=== PATIENT | female | born 1960 | race Caucasian/White ===

== ENCOUNTER → 2021-03-14 10:24 | Outpatient (BNVA) | payer OTHER, SELFPAY | PROVIDERS: Family Provider Family Medicine; PCP Family Medicine; Referring Provider Registered Nurse; Visit Provider Anesthesiology | DX: G89.29 Other chronic pain (principal); M54.42 Lumbago with sciatica, left side; M54.9 Dorsalgia, unspecified; Z79.891 Long term (current) use of opiate analgesic; Z87.891 Personal history of nicotine dependence | CPT/HCPCS: 99204 ==

== ENCOUNTER 2021-03-14 13:59 | Outpatient (CLI) | payer OTHER, SELFPAY | END 2021-03-14 14:00 | disposition home or self-care (01) | LOC: WOUND 14:03 | PROVIDERS: Family Provider Family Medicine; PCP Family Medicine; Visit Provider Thoracic Surgery (Cardiothoracic Vascular Surgery) | DX: L97.812 Non-pressure chronic ulcer of other part of right lower leg with fat layer exposed (principal); L97.822 Non-pressure chronic ulcer of other part of left lower leg with fat layer exposed | CPT/HCPCS: 88305; 97597; 97598; G0463 ==

== ENCOUNTER 2021-03-21 09:29 | Outpatient (CLI) | payer OTHER, SELFPAY | END 2021-03-21 09:30 | disposition home or self-care (01) | LOC: WOUND 09:29 | PROVIDERS: Family Provider Family Medicine; PCP Family Medicine; Visit Provider Thoracic Surgery (Cardiothoracic Vascular Surgery) | DX: L97.812 Non-pressure chronic ulcer of other part of right lower leg with fat layer exposed (principal); L97.822 Non-pressure chronic ulcer of other part of left lower leg with fat layer exposed | CPT/HCPCS: 11042; 11045 ==

== ENCOUNTER 2021-03-21 11:01 | Outpatient (CLI) | payer OTHER, SELFPAY ==
--- NOTE | 2021-03-21 11:08 | USCV_ITS ---
Leticia Rodriguez Age: 60 Gender: F : 1960 Exam Date: 03/21/2021 11:27 Ordering Phys: Marino Fisher MD (Andy) ([email or web address] [email or web address] Technologist: Lissy Fountain Exam Location: [facility] [place] HISTORY: Lower extremity swelling. Lower extremity pain. PROCEDURES: Venous duplex imaging was performed in only the left lower extremity. The following venous structures were evaluated: common femoral vein, profunda vein, proximal portion of the greater saphenous vein, superficial femoral vein, and the popliteal vein. In addition, the posterior tibial and peroneal trunk were evaluated. FINDINGS: Normal 2-D Doppler and augmentation and compressibility throughout the lower extremity venous structures. Additional imaging through the proximal calf veins also reveals no thrombus. Limited evaluation of the greater saphenous vein is patent with no thrombus. CONCLUSIONS No DVT left lower extremity. Dr. Kristal Ricks DO (Electronically Signed) Final Date: 21 March 2021 12:22 S
== END 2021-03-21 11:02 | disposition home or self-care (01) ==
LOC: RAD 11:04
PROVIDERS: PCP Family Medicine; Visit Provider Thoracic Surgery (Cardiothoracic Vascular Surgery)
DX: M79.604 Pain in right leg (principal); M79.89 Other specified soft tissue disorders; L53.9 Erythematous condition, unspecified
CPT/HCPCS: 93971

== ENCOUNTER → 2021-04-05 09:52 | Outpatient (BNVA) | payer OTHER, SELFPAY | PROVIDERS: PCP Family Medicine; Visit Provider Anesthesiology | DX: M54.42 Lumbago with sciatica, left side (principal); F17.210 Nicotine dependence, cigarettes, uncomplicated; Z79.891 Long term (current) use of opiate analgesic | CPT/HCPCS: 99213 ==

== ENCOUNTER 2021-04-09 08:59 | Outpatient (CLI) | payer OTHER, SELFPAY | END 2021-04-09 09:00 | disposition home or self-care (01) | LOC: WOUND 09:00 | PROVIDERS: PCP Family Medicine; Visit Provider Thoracic Surgery (Cardiothoracic Vascular Surgery) | DX: C44.712 Basal cell carcinoma of skin of right lower limb, including hip (principal); S81.812A Laceration without foreign body, left lower leg, initial encounter; W10.9XXA Fall (on) (from) unspecified stairs and steps, initial encounter | CPT/HCPCS: 11042 ==

== ENCOUNTER 2021-04-23 12:57 | Outpatient (CLI) | payer OTHER, SELFPAY | END 2021-04-23 12:58 | disposition home or self-care (01) | LOC: WOUND 12:58 | PROVIDERS: PCP Family Medicine; Visit Provider Nurse Practitioner Family | DX: L97.822 Non-pressure chronic ulcer of other part of left lower leg with fat layer exposed (principal) | CPT/HCPCS: 11042 ==

== ENCOUNTER → 2021-06-27 08:42 | Outpatient (BNVA) | payer OTHER, SELFPAY | PROVIDERS: PCP Family Medicine; Visit Provider Anesthesiology | DX: M54.42 Lumbago with sciatica, left side (principal); Z87.891 Personal history of nicotine dependence; Z79.891 Long term (current) use of opiate analgesic | CPT/HCPCS: 99213 ==

== ENCOUNTER → 2021-08-15 09:04 | Outpatient (BNVA) | payer OTHER, SELFPAY | PROVIDERS: PCP Family Medicine; Visit Provider Anesthesiology | DX: G89.29 Other chronic pain (principal); M54.42 Lumbago with sciatica, left side; Z79.891 Long term (current) use of opiate analgesic | CPT/HCPCS: 99213 ==

== ENCOUNTER → 2023-05-19 11:14 | Outpatient (BNVA) | payer OTHER, MEDICAID, SELFPAY | PROVIDERS: PCP Nurse Practitioner Family; Visit Provider Nurse Practitioner Family | DX: J44.9 Chronic obstructive pulmonary disease, unspecified (principal); H57.9 Unspecified disorder of eye and adnexa; E78.5 Hyperlipidemia, unspecified; I10 Essential (primary) hypertension; I50.9 Heart failure, unspecified; M25.511 Pain in right shoulder | CPT/HCPCS: 80053; 80061; 85025 ==

== ENCOUNTER → 2023-06-10 10:19 | Outpatient (BNVA) | payer OTHER, MEDICAID, SELFPAY | PROVIDERS: PCP Nurse Practitioner Family; Visit Provider Nurse Practitioner Family | DX: R53.83 Other fatigue (principal) | CPT/HCPCS: 85025 ==

== ENCOUNTER 2023-06-18 12:54 | Outpatient (CLI) | payer OTHER, SELFPAY ==
--- NOTE | 2023-06-18 13:02 | XR_ITS ---
WS: [id number] XR shoulder RT min 2V* [id number] REASON FOR EXAM: M25.511 - Pain in right shoulder FINDINGS: No fracture or focal bone lesion. Acromioclavicular joint is intact without significant arthropathic change. The glenohumeral joint space is not optimally demonstrated however there does appear to be mild to mo derate narrowing with mild subchondral sclerosis of the glenoid. No soft tissue abnormality. IMPRESSION: Mild to moderate osteoarthritis in the glenohumeral joint.
== END 2023-06-18 12:55 | disposition home or self-care (01) ==
PROVIDERS: PCP Nurse Practitioner Family; Visit Provider Nurse Practitioner Family
DX: M25.511 Pain in right shoulder (principal); M19.011 Primary osteoarthritis, right shoulder; R00.0 Tachycardia, unspecified; I25.10 Atherosclerotic heart disease of native coronary artery without angina pectoris; I50.9 Heart failure, unspecified; J44.9 Chronic obstructive pulmonary disease, unspecified
CPT/HCPCS: 36415; 73030; 80048; 83880; 93005

== ENCOUNTER → 2023-07-28 14:48 | Outpatient (BNVA) | payer OTHER, SELFPAY | PROVIDERS: PCP Nurse Practitioner Family; Referring Provider Nurse Practitioner Family; Visit Provider Specialist | DX: M25.511 Pain in right shoulder (principal) | CPT/HCPCS: 73030 ==

== ENCOUNTER → 2023-08-04 11:44 | Outpatient (BNVA) | payer MEDICARE, OTHER, SELFPAY | PROVIDERS: PCP Nurse Practitioner Family; Visit Provider Nurse Practitioner Family | DX: F41.9 Anxiety disorder, unspecified (principal); J44.0 Chronic obstructive pulmonary disease with (acute) lower respiratory infection; I50.9 Heart failure, unspecified; R51.9 Headache, unspecified; M54.50 Low back pain, unspecified; G89.29 Other chronic pain; M54.42 Lumbago with sciatica, left side; I25.10 Atherosclerotic heart disease of native coronary artery without angina pectoris | CPT/HCPCS: 80053; 83880; 85025 ==

== ENCOUNTER → 2023-08-07 10:03 | Outpatient (BNVA) | payer MEDICARE, OTHER, SELFPAY | PROVIDERS: PCP Nurse Practitioner Family; Visit Provider Nurse Practitioner Family | DX: E87.6 Hypokalemia (principal); Z23 Encounter for immunization | CPT/HCPCS: 80053 ==

== ENCOUNTER 2023-08-13 12:52 | Outpatient (CLI) | payer MEDICARE, OTHER, SELFPAY ==
[2023-08-13 13:36] LABS: Alanine Aminotransferase 16 U/L (0-33); Albumin Level 4.1 g/dL (3.5-5.2); Alkaline Phosphatase 73 U/L (35-105); Anion Gap 11.6 (5-19); Aspartate Amino Transferase 23 U/L (0-32); Blood Urea Nitrogen 7 mg/dL (8-23); Calcium 9.2 mg/dL (8.5-10.5); Carbon Dioxide 39 mmol/L (22-29); Chloride 94 mmol/L (98-107); Globulin 3.1 g/dL (1.3-4.6); Glucose 121 mg/dL (65-115); Osmolality Calculated 293 mOsm/kg (285-295); Sodium 142 mmol/L (136-145); Total Bilirubin 0.4 mg/dL (0.15-1.2); Total Protein 7.2 g/dL (6.6-8.7)
[2023-08-13 13:41] LABS: Potassium 2.6 mmol/L (3.5-5.1)
== END 2023-08-13 12:53 | disposition home or self-care (01) ==
PROVIDERS: PCP Nurse Practitioner Family; Visit Provider Nurse Practitioner Family
DX: E87.6 Hypokalemia (principal)
CPT/HCPCS: 36415; 80053

== ENCOUNTER 2023-08-13 13:57 | Emergency (ER) | payer MEDICARE, OTHER, SELFPAY ==
--- NOTE | 2023-08-13 14:10 | ECG_ITS ---
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 Measurements Intervals [place] Rate: 90 P: 80 SD: 139 QRS: 66 QRSD: 92 T: 24 QT: 312 QTc: 384 Interpretive Statements SINUS RHYTHM NONSPECIFIC ST & T-WAVE ABNORMALITY No previous ECG available for comparison Electronically Signed On 08-13-2023 15:12:19 DIRECTOR OF CRITICAL CARE by Carlo Langston M.D. [id number]
[2023-08-13 14:13] VITALS: BP 163/79; PULSE 98; RESP 16; TEMP 36.6; O2SAT 94; BMI 40.3
[2023-08-13] MEDS: promethazine 25 mg/mL SDV 1 mL IM (14:35)
--- NOTE | 2023-08-13 14:37 | W.ED.RECABL ---
HPI - Recheck/Abnormal Lab/Rx General: Chief Complaint: Recheck/Abnormal Lab/Rx Stated Complaint: abnormal labs,low potassium Time Seen by Provider: 08/13/23 14:01 Source: patient Mode of arrival: wheelchair Limitations: no limitations History of Present Illness: Patient is a 63-year-old female with past medical history of COPD, CHF, CAD, and hypokalemia who presents to the emergency department from doctor's office due to abnormal lab today. Patient was sent for a potassium of 2.6 obtained today. She states she has a history of low potassium, and has been hospitalized once prior for this reason. She reports that she feels more fatigued than normal, but otherwise has no changes from baseline. She is chronically on 6-7 L of oxygen for her COPD. She denies any acute changes in her medications and denies any new swelling in her abdomen or extremities. She denies any chest pain or palpitations, and states that her breathing feels at baseline. MD complaint: abnormal lab (Hypokalemia) Review of Systems Const: Reports: fatigue and other (Abnormal lab-hypokalemia); Denies: fever(s) or chills Card: Denies: chest pain, palpitations, irregular heart rhythm, edema or dyspnea on exertion Resp: Denies: dyspnea or productive cough GI: Denies: abdominal pain, nausea, vomiting, diarrhea or constipation : Denies: dysuria, urinary frequency, urinary urgency or urinary hesitancy Musc: Denies: neck pain or back pain Skin/Breast: Denies: rash Neuro: Denies: headache(s) PFSH ED PFSH: Medical History Aching headache Acute bilateral low back pain Acute hip pain Anxiety Arthritis Asthma BiPAP (biphasic positive airway pressure) dependence CHF (congestive heart failure) Chronic joint pain Chronic low back pain Cluster headaches COPD (chronic obstructive pulmonary disease) COPD (chronic obstructive pulmonary disease) Delivery with history of Encounter for long-term opiate analgesic use Encounter for narcotic contract discussion Hypertension Hypoxia Insomnia Lentigo simplex Lumbago with sciatica, left side Opioid use Other chronic pain Pain in left hip Pain management contract signed Sciatica Sleep apnea Smoker Surgical History History of appendectomy Hx of appendectomy Hx of breast biopsy Hx of section Hx of cholecystectomy Hx of cholecystectomy Hx of heart artery stent Hx of shoulder surgery Social History Smoking and tobacco/nicotine status: current every day tobacco/nicotine user cigarettes Alcohol intake: former Substance/Drug Use: current Caregiver/support person: Yes Lives independently: Yes Physical Exam Const: COMMON NORMALS: no acute distress GENERAL APPEARANCE: cooperative and comfortable NUTRITIONAL APPEARANCE: obese ORIENTATION/CONSCIOUSNESS: Yes awake, Yes oriented to person, Yes oriented to place and Yes oriented to time HENMT: COMMON NORMALS: normocephalic, atraumatic and hearing grossly normal bilaterally HEAD & SCALP: normocephalic and atraumatic Resp: COMMON NORMALS: normal respiratory effort, No retractions and No use of accessory muscles EFFORT & INSPECTION: Yes Actively coughing AUSCULTATION: wheezes throughout Cardio: COMMON NORMALS: regular rate, regular rhythm, No murmurs present (Cardio) and Peripheral pulses 2+ throughout RATE: regular rate RHYTHM: regular rhythm PERIPHERAL PULSES: Peripheral pulses 2+ throughout GI: COMMON NORMALS: Soft to palpation and No hepatosplenomegaly present AUSCULTATION: Yes normoactive bowel sounds PALPATION: Yes Soft to palpation, No Tenderness to palpation present (GI), No Guarding due to palpation present (GI) and Yes No hepatosplenomegaly present Extremity: COMMON NORMALS: normal to inspection, capillary refill normal, no clubbing, cyanosis or edema and no calf tenderness GENERAL: Yes edema (3+ bilateral) Neuro: SENSORIUM/ORIENTATION: Yes oriented to person, Yes oriented to place and Yes oriented to time Skin: COMMON NORMALS: no rashes or lesions noted GENERAL SKIN EXAM: no rashes or lesions noted Course Vital Signs: Vital signs: Vital Signs Temperature 97.9 F 08/13/23 14:13 Pulse Rate 84 08/13/23 15:40 Respiratory Rate 16 08/13/23 14:13 Blood Pressure 149/73 08/13/23 15:40 Pulse Oximetry 100 08/13/23 15:40 Oxygen Delivery Me thod Room Air 08/13/23 15:40 Oxygen Flow Rate 5 08/13/23 14:13 MDM - Recheck/Abnormal Lab/Rx Medical Decision Making Hypokalemia. Resolved after giving oral supplement. Patient has been regularly taking the oral tablets. She has been taking them regularly but evidently not absorbing them because she has been chronically hypokalemic recently. She does seem to absorb the liquid well. Recommend that she change from the pills to the liquid formulation 20 mEq 3 times daily follow-up with her primary care doctor within a week to recheck potassium. Advised patient she may need to have prior authorization done by her primary care provider. Given the laboratory proven persistent hypokalemia while on the tablet formation and today's significant improvement with the oral formulation I think it does justify switching her to the oral liquid. Medical Records I reviewed the patient's medical records. Lab Data I reviewed the patient's lab results. 08/13/23 15:48 Laboratory Results Potassium 3.3 mmol/L (3.5-5.1) L 08/13/23 15:48 No radiology studies performed this visit Discharge Plan Discharge Patient Disposition: Home Clinical Impression: Hypokalemia Condition: Stable Prescriptions: New potassium chloride 20 mEq/15 mL liquid 20 meq PO TID Qty: 1500 0RF Discontinued potassium chloride [Klor-Con M20] 20 mEq tablet,ER particles/crystals 20 meq PO TID No Action calcium carbonate-vitamin D3 [Calcium 600 with Vitamin D3] 600 mg(1,500mg) -500 unit capsule 1 cap PO DAILY furosemide [Lasix] 20 mg tablet 20 mg PO DAILY mupirocin 2 % ointment 1 applic topical DAILY Qty: 22 1RF Rx Instructions: Apply to affected area until healed majuania gummies 1 ea PO PRN cyclobenzaprine 10 mg tablet 10 mg PO TID PRN (Reason: Spasms) clopidogrel [Plavix] 75 mg tablet 75 mg PO DAILY albuterol sulfate [ProAir HFA] 90 mcg/actuation HFA aerosol inhaler 1 inh inhalation QID PRN (Reason: Shortness Of Breath) isosorbide mononitrate 60 mg tablet extended release 24 hr 60 mg PO DAILY spironolactone 25 mg tablet 25 mg PO QAM metoprolol tartrate 25 mg tablet 12.5 mg PO BID fluticasone propion-salmeterol [Advair Diskus] 500-50 mcg/dose blister with device 1 inh inhalation BID (DME) oxygen-air delivery systems Device See Rx Instructions .Route Rx Instructions: 7 L at home during the day 9 L at night in bipap machine (DME) CPAP Device See Rx Instructions .Route Rx Instructions: bipap @ 12 cm ipap and 8cm epap with heated humidifier and heated tubing length of need 99 nitroglycerin [Nitrostat] 0.4 mg tablet, sublingual 0.4 mg sublingual Q5M PRN (Reason: Chest Pain) Rx Instructions: do not exceed 3 doses per episode acetaminophen [Tylenol Extra Strength] 500 mg tablet 500 mg PO Q6H PRN (Reason: Pain) multivitamin [Daily Multi-Vitamin] Tablet 1 tab PO DAILY nystatin 100,000 unit/gram powder 1 applic topical DAILY Qty: 15 1RF promethazine-DM 6.25-15 mg/5 mL syrup 5 ml PO Q6H PRN (Reason: Cough) ipratropium-albuterol 0.5 mg-3 mg(2.5 mg base)/3 mL solution for nebulization 3 ml inhalation 6XD PRN (Reason: Shortness Of Breath) Lunesta 3 mg tablet 3 mg PO BEDTIME Discharge Orders: Discharge ED (Routine); Ordered 08/13/23 Ordered By: Tono Garg Referrals: Fadia Li FNP [Primary Care Provider] - Discharge Diet: Usual diet Discharge Activity: Resume usual activity Patient Instructions: Opioid Safety, Pain Management Activity Restrictions/Additional Instructions: Thank you for choosing [facility] for your healthcare needs today. Please realize this is an emergency room and that we are providing you with a medical screening exam and this may not be complete and all inclusive of all the testing and or work up that you may need to determine your ailment or severity of your illness. It is very important that you follow up as instructed or that you return to the Emergency Department should you have concerns or if your condition changes or worsens in any way. You were seen today for low potassium. Your potassium improved with the supplementation given in the emergency room. You were previously taking oral tablets as they do not seem to be absorbing well you are given a prescription for the potassium liquid. You should take 20 mill equivalents (15 mL) 3 times daily. You can mix this into another liquid to help counter the taste of the medication. Follow-up with your primary care provider within the next 7 to 10 days to recheck your potassium. Coding Level of Care Code ED Moving Picture Operator for Bryanna Devi
[2023-08-13 14:44] VITALS: BP 144/76; PULSE 92; O2SAT 98
[2023-08-13] MEDS: potassium chloride oral liq 20 mEq/15 mL UDC 60 MEQ PO (14:59)
[2023-08-13 15:40] VITALS: BP 149/73; PULSE 84; O2SAT 100
[2023-08-13 16:09] LABS: Potassium 3.3 mmol/L (3.5-5.1)
[2023-08-13 16:52] VITALS: BP 126/75; PULSE 71; O2SAT 95
== END 2023-08-13 16:54 | disposition home or self-care (01) ==
PROVIDERS: Emergency Provider Family Medicine; PCP Nurse Practitioner Family
DX: E87.6 Hypokalemia (principal); Z79.02 Long term (current) use of antithrombotics/antiplatelets; F17.210 Nicotine dependence, cigarettes, uncomplicated; I11.0 Hypertensive heart disease with heart failure; I50.9 Heart failure, unspecified; J44.9 Chronic obstructive pulmonary disease, unspecified
CPT/HCPCS: 36415; 84132; 93005; 96372; 99284; J2550

== ENCOUNTER 2023-09-01 08:40 | Outpatient (CLI) | payer OTHER, MEDICARE, SELFPAY ==
--- NOTE | 2023-09-01 09:30 | MR_ITS ---
WS: [id number] MRI RIGHT SHOULDER NONCONTRAST TECHNIQUE: Sagittal T2, coronal T1, T2 and proton density imaging. Axial gradient PDE imaging. CLINICAL INFORMATION: right shoulder pain COMPARISON: None. FINDINGS: Prior postoperative changes RIGHT AC joint. Degenerative arthritis at the AC joint with mild downslop ing acromion. Mild narrowing subacromial space. Small amount of subacromial subdeltoid fluid. Tiny kenny int effusion. Tendinopathy distal supraspinatus. Small undersurface tear distal infraspinatus. No ten don retraction. Chronic thinning of the supraspinatus and infraspinatus. Normal teres minor. Normal subscapularis. Biceps tendon is intact within the bicipital groove. Modera te degenerative arthritis glenohumeral articulation with mild degenerative fraying of the glenoid lab rum. Visually small shoulder capsule with thickening of the axillary recess. Recommend correlation for adh esive capsulitis. IMPRESSION: 1. Tendinopathy distal supraspinatus. Tiny undersurface tear distal infraspinatus. 2. Biceps tendon is intact within the bicipital groove. 3. Moderate degenerative narrowing of the glenohumeral articulation. 4. Visually small shoulder capsule. Recommend correlation for adhesive capsulitis.
== END 2023-09-01 08:41 | disposition home or self-care (01) ==
PROVIDERS: PCP Nurse Practitioner Family; Visit Provider Specialist
DX: M25.511 Pain in right shoulder (principal); M67.813 Other specified disorders of tendon, right shoulder
CPT/HCPCS: 73221

== ENCOUNTER → 2023-09-02 12:23 | Outpatient (BNVA) | payer MEDICARE, OTHER, SELFPAY | PROVIDERS: PCP Nurse Practitioner Family; Visit Provider Nurse Practitioner Family | DX: I25.10 Atherosclerotic heart disease of native coronary artery without angina pectoris (principal); I11.0 Hypertensive heart disease with heart failure; I50.9 Heart failure, unspecified; F17.210 Nicotine dependence, cigarettes, uncomplicated | CPT/HCPCS: 99213 ==

== ENCOUNTER → 2023-09-04 08:15 | Outpatient (BNVA) | payer MEDICARE, OTHER, SELFPAY | PROVIDERS: PCP Nurse Practitioner Family; Visit Provider Internal Medicine Pulmonary Disease | DX: F17.210 Nicotine dependence, cigarettes, uncomplicated (principal); J44.0 Chronic obstructive pulmonary disease with (acute) lower respiratory infection; Z12.2 Encounter for screening for malignant neoplasm of respiratory organs; Z71.6 Tobacco abuse counseling; I50.9 Heart failure, unspecified; Z99.81 Dependence on supplemental oxygen | CPT/HCPCS: 99204 ==

== ENCOUNTER → 2023-09-10 10:38 | Outpatient (BNVA) | payer MEDICARE, OTHER, SELFPAY | PROVIDERS: PCP Nurse Practitioner Family; Visit Provider Psychiatry & Neurology Neurology | DX: G44.009 Cluster headache syndrome, unspecified, not intractable (principal) | CPT/HCPCS: 99203 ==

== ENCOUNTER 2023-09-17 10:10 | Outpatient (CLI) | payer MEDICARE, OTHER, SELFPAY ==
--- NOTE | 2023-09-17 11:00 | CT_ITS ---
WS: [id number] LDCT LUNG CANCER SCREENING TECHNIQUE: Noncontrast CT of the chest with coronal and sagittal reformatted images. CLINICAL INFORMATION: Cancer Screen COMPARISON: None. DLP: 119.60 mGy.cm DIvol: Mean CTDIvol: 3.00 (mGy) All CT scans at [facility] use at least one of these dose optimization techniques: automat ed exposure control; mA and/or kV adjustment per patient size (includes targeted exams where dose is matched to clinical indication); or iterative reconstruction. FINDINGS: No suspicious pulmonary parenchymal abnormalities. Normal caliber thoracic aorta. Aortic ca lcification. Coronary calcification. Adrenal glands are normal. Tiny esophageal hernia. Mild thoracic curve. Mild thoracic kyphosis. Hypertrophic changes thoracic spine. IMPRESSION: CT/CT lung screening [id number] LUNG-RADS: 1-Negative FOLLOW UP: 12 Month: Continue annual screening with LDCT
== END 2023-09-17 10:11 | disposition home or self-care (01) ==
PROVIDERS: PCP Nurse Practitioner Family; Visit Provider Internal Medicine Pulmonary Disease
DX: Z12.2 Encounter for screening for malignant neoplasm of respiratory organs (principal); F17.210 Nicotine dependence, cigarettes, uncomplicated; M75.01 Adhesive capsulitis of right shoulder; M25.511 Pain in right shoulder; G89.29 Other chronic pain
CPT/HCPCS: 20610; 71271; 99213; J1100; J2795; J3301

== ENCOUNTER → 2023-10-24 10:33 | Outpatient (BNVA) | payer MEDICARE, OTHER, SELFPAY | PROVIDERS: PCP Nurse Practitioner Family; Visit Provider Nurse Practitioner Family | DX: I50.9 Heart failure, unspecified (principal); E87.6 Hypokalemia; I10 Essential (primary) hypertension | CPT/HCPCS: 80053; 80061; 83880; 85025 ==

== ENCOUNTER → 2023-11-06 13:06 | Outpatient (BNVA) | payer MEDICARE, OTHER, SELFPAY | PROVIDERS: PCP Nurse Practitioner Family; Visit Provider Internal Medicine Pulmonary Disease | DX: J44.0 Chronic obstructive pulmonary disease with (acute) lower respiratory infection (principal); Z12.2 Encounter for screening for malignant neoplasm of respiratory organs; Z71.6 Tobacco abuse counseling; J96.11 Chronic respiratory failure with hypoxia | CPT/HCPCS: 99214 ==

== ENCOUNTER 2023-12-19 09:42 | Outpatient (CLI) | payer MEDICARE, OTHER, SELFPAY ==
[2023-12-19 12:52] LABS: Alanine Aminotransferase 10 U/L (0-33); Albumin Level 4.1 g/dL (3.5-5.2); Alkaline Phosphatase 91 U/L (35-105); Anion Gap 15.9 (5-19); Aspartate Amino Transferase 17 U/L (0-32); Blood Urea Nitrogen 4 mg/dL (8-23); Calcium 9.2 mg/dL (8.5-10.5); Carbon Dioxide 34 mmol/L (22-29); Chloride 94 mmol/L (98-107); Globulin 3.4 g/dL (1.3-4.6); Glucose 95 mg/dL (65-115); NT Pro B Type Natriuretic Pept 531 pg/mL (0-125); Osmolality Calculated 289 mOsm/kg (285-295); Sodium 141 mmol/L (136-145); Total Bilirubin 0.7 mg/dL (0.15-1.2); Total Protein 7.5 g/dL (6.6-8.7)
[2023-12-19 12:58] LABS: Potassium 2.9 mmol/L (3.5-5.1)
== END 2023-12-19 09:43 | disposition home or self-care (01) ==
LOC: LAB 09:43
PROVIDERS: PCP Nurse Practitioner Family; Visit Provider Nurse Practitioner Family
DX: I50.9 Heart failure, unspecified (principal); E87.6 Hypokalemia
CPT/HCPCS: 36415; 80053; 83880; 99213

== ENCOUNTER 2023-12-24 09:36 | Outpatient (CLI) | payer OTHER, MEDICARE, SELFPAY ==
[2023-12-24 10:15] VITALS: PULSE 89; RESP 18; O2SAT 91
[2023-12-24] MEDS: albuterol 2.5 mg/3 mL Neb INHALATION (10:15)
[2023-12-24 10:19] VITALS: PULSE 82
== END 2023-12-24 09:37 | disposition home or self-care (01) ==
PROVIDERS: PCP Nurse Practitioner Family; Visit Provider Internal Medicine Pulmonary Disease
DX: R06.02 Shortness of breath (principal)
CPT/HCPCS: 94060; 94618; 94726; 94729; J7613

== ENCOUNTER 2023-12-24 10:40 | Outpatient (CLI) | payer OTHER, MEDICARE, SELFPAY ==
--- NOTE | 2023-12-24 10:47 | XR_ITS ---
WS: [id number] Exam: XR knee LT 3V* [id number] Date/Time of Exam: 12/24/2023 10:47 AM Reason For Exam: M25.562 - Pain in left knee No acute fracture or dislocation. The joint compartments are relatively well-maintained. No joint eff usion identified. Normal soft tissues. IMPRESSION: 1. Negative LEFT knee.
== END 2023-12-24 10:41 | disposition home or self-care (01) ==
LOC: RAD 10:45
PROVIDERS: PCP Nurse Practitioner Family; Visit Provider Nurse Practitioner Family
DX: M25.562 Pain in left knee (principal)
CPT/HCPCS: 73562

== ENCOUNTER → 2023-12-30 09:35 | Outpatient (BNVA) | payer MEDICARE, OTHER, SELFPAY | PROVIDERS: PCP Nurse Practitioner Family; Visit Provider Nurse Practitioner Family | DX: E87.6 Hypokalemia (principal) | CPT/HCPCS: 80053 ==

== ENCOUNTER 2024-01-21 10:30 | Outpatient (CLI) | payer MEDICARE, OTHER, SELFPAY ==
--- NOTE | 2024-01-21 11:00 | MR_ITS ---
WS: [id number] MRI LEFT KNEE NONCONTRAST TECHNIQUE: Axial PD, coronal PD fat sat, coronal PD, sagittal PD, and sagittal PD fat-sat images obta ined. CLINICAL INFORMATION: M25.562 - Pain in left knee COMPARISON: None. FINDINGS: Distal quadriceps and patella tendons are intact. Hypertrophic patella. Normal ACL and PCL. Small sup rapatellar effusion. Advanced chondromalacia patella. Medial and lateral patellar retinaculum appear intact. Small lobulated popliteal cyst. Measures 2.1 x 1.1 cm. Medial and lateral collateral ligaments appear intact. Small amount of fluid and edema deep to the MC L can be seen with grade 1 injury. Chronic thinning of the medial and lateral meniscus. Chronic intra substance signal abnormality involving the lateral meniscus. Blunting with chronic appearing tear inv olving the medial meniscus at the meniscal root. Advanced chronic thinning of the medial meniscus. Mo derate to advanced tricompartment arthritis worse in the medial joint compartment with grade IV chond romalacia. . IMPRESSION: 1. Moderate to advanced tricompartmental arthritis worse in the medial joint compartment with grade IV chondromalacia. 2. Chronic thinning of the medial meniscus with chronic appearing tear at the meniscal root with carlotta nting. 3. Fluid and edema deep to the medial collateral ligament compatible with grade 1 injury. 4. Advanced chondromalacia patella. 5. Small suprapatellar effusion. 6. Small popliteal cyst described above. 7. ACL and PCL appear intact. Outbridge grading: grade IV: full-thickness cartilage loss with underlying bone reactive changes
== END 2024-01-21 10:31 | disposition home or self-care (01) ==
LOC: RAD 10:31
PROVIDERS: PCP Nurse Practitioner Family; Visit Provider Nurse Practitioner Family
DX: M25.562 Pain in left knee (principal); M22.42 Chondromalacia patellae, left knee; M17.12 Unilateral primary osteoarthritis, left knee; M25.462 Effusion, left knee; M71.22 Synovial cyst of popliteal space [Baker], left knee
CPT/HCPCS: 73721

== ENCOUNTER → 2024-03-01 11:34 | Outpatient (BNVA) | payer MEDICARE, OTHER, SELFPAY | PROVIDERS: PCP Nurse Practitioner Family; Visit Provider Internal Medicine Cardiovascular Disease | DX: R07.9 Chest pain, unspecified (principal); R06.02 Shortness of breath; I50.9 Heart failure, unspecified; E78.5 Hyperlipidemia, unspecified; I25.10 Atherosclerotic heart disease of native coronary artery without angina pectoris; I10 Essential (primary) hypertension; I25.118 Atherosclerotic heart disease of native coronary artery with other forms of angina pectoris; J44.9 Chronic obstructive pulmonary disease, unspecified; E87.6 Hypokalemia; F17.210 Nicotine dependence, cigarettes, uncomplicated; R94.31 Abnormal electrocardiogram [ECG] [EKG] | CPT/HCPCS: 36415; 80048; 80061; 80076; 83880; 93005; 99215 ==

== ENCOUNTER → 2024-04-16 08:38 | Outpatient (BNVA) | payer MEDICARE, OTHER, SELFPAY | PROVIDERS: PCP Nurse Practitioner Family; Visit Provider Nurse Practitioner | DX: M17.12 Unilateral primary osteoarthritis, left knee; G89.29 Other chronic pain; Z71.89 Other specified counseling | CPT/HCPCS: 20610; 99214; J1100; J2795; J3301 ==

== ENCOUNTER → 2024-06-01 09:45 | Outpatient (BNVA) | payer MEDICARE, OTHER, SELFPAY | PROVIDERS: PCP Nurse Practitioner Family; Visit Provider Nurse Practitioner Family | DX: I25.10 Atherosclerotic heart disease of native coronary artery without angina pectoris (principal); I11.0 Hypertensive heart disease with heart failure; I50.9 Heart failure, unspecified; F17.210 Nicotine dependence, cigarettes, uncomplicated | CPT/HCPCS: 99214 ==

== ENCOUNTER → 2024-06-17 11:06 | Outpatient (BNVA) | payer MEDICARE, OTHER, SELFPAY | PROVIDERS: PCP Nurse Practitioner Family; Visit Provider Nurse Practitioner Family | DX: E87.6 Hypokalemia (principal); N39.0 Urinary tract infection, site not specified | CPT/HCPCS: 80053; 81000; 87086 ==

== ENCOUNTER 2024-06-22 07:23 | Outpatient (CLI) | payer MEDICARE, OTHER, SELFPAY ==
--- NOTE | 2024-06-22 | ECG_ITS ---
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 Interpretive Statements Dobutamine/sestamibi/sestamibi stress test PROCEDURE: At the baseline, the blood pressure was with a heart rate of. The electrocardiogram showed sinus bradycardia with a rate of [address] Ts.. The dobutamine was infused over a period of 9 minutes and 40 seconds. The maximum heart rate obtained was 167 (108% of the maximum predicted heart rate). The blood pressure at that time was 194/44 mmHg. The patient did not have any chest pain . The physical examination remained unchanged. The EKG revealed 1 to 1-1/[address] depressions in lead II, III, aVF, V5 and V6. Frequent PVCs in the form of isolated beats, couplets and triplets were noted with the peak infusion. During the recovery phase, the patient did not have any specific symptoms. The blood pressure at the end of the recovery phase was 178/96 with a heart rate of 102 per minute. CONCLUSION: 1. Abnormal EKG response to dobutamine infusion suggesting inferolateral wall ischemia. 2. No dobutamine due to chest pain. 3. Frequent PVCs in the form of isolated beats, couplets, triplets and short runs of nonsustained atrial tachycardia were noted during the peak infusion. 4. Sestamibi/Sestamibi perfusion scan pending; see separate report. Electronically Signed On 06-27-2024 21:26:18 CDT by Samuel Granados M.D. [id number]
[2024-06-22 08:07] VITALS: BMI 34.9
--- NOTE | 2024-06-22 08:08 | NMCV_ITS ---
NM molly perf SPECT r/s* [id number] Leticia Maynard Age: 64 Gender: F : 1960 Exam Date: 06/22/2024 08:08 Ordering Phys: Samuel Granados MD ([email or web address]) Technologist: DAVE May Exam Location: [facility] Indications: CP STRESS TEST [facility] IMAGE PROTOCOL Rest/Stress 1 Dobutamine Day Radiopharmaceutical Dose (mCi) Administration Site Administered by Rest: Tc-99m 11.0 IV DAVE Garza Sestamibi Stress:Tc-99m 32.1 IV DAVE Cifuentes Sestamibi Rest: 22-Jun-2024 60 Discovery 630 Stress: 22-Jun-2024 30 Discovery 630 Radiopharmaceutical was injected at 85 % maximum heart rate. Supine position only as patient was unable to lay prone. SPECT RESULTS Technical Quality: Good Raw Data Analysis: Adequate Image Corrections: No attenuation or motion correction applied Summed Stress Score: 0 Summed Rest Score: 0 Summed Difference Score: 0 PERFUSION FINDINGS Fairly uniform myocardial tracer uptake. No significant Perfusion normalities. FUNCTIONAL RESULTS (calculated via Gated SPECT) Stress Image LV EF (%): 60 Stress EDV (mL):97 TID: 1.31 Stress ESV (mL):39 FUNCTIONAL FINDINGS: Segmental wall motion analysis revealing no gross wall motion abnormalities IMPRESSIONS 1. Myocardial perfusion imaging revealing fairly uniform myocardial tracer uptake with no significant perfusion abnormalities. 2. Normal LV ejection fraction 60%. 3. LV wall motion analysis revealing no gross wall motion abnormalities. 4. Normal LV volume 5. Elevated transient ischemic dilatation ratio of 1.31 may suggest endocardial ischemia. However in the absence of any other abnormal objective findings, the reliability is questionable. Clinical correlation is recommended. Dr Samuel Granados MD FAC (Electronically Signed) Final Date: 22 June 2024 13:21 S
[2024-06-22] MEDS: DOBUTtamine 200 MG in sodium chloride 0.9% 34 ML 15.65 MG IV (09:55)
[2024-06-22] MEDS: atropine 0.1 mg/mL Syr 10 mL 0.5 MG IVP (10:04)
[2024-06-22] MEDS: metoprolol tartrate 1 mg/1 mL SDV 5 mL 5 MG IV (10:10)
[2024-06-22 10:26] VITALS: BP 176/73; PULSE 99
== END 2024-06-22 07:24 | disposition home or self-care (01) ==
PROVIDERS: PCP Nurse Practitioner Family; Visit Provider Internal Medicine Cardiovascular Disease
DX: Z98.61 Coronary angioplasty status (principal); R06.02 Shortness of breath; R94.39 Abnormal result of other cardiovascular function study
CPT/HCPCS: 36415; 78452; 93017; A9500; J0461; J1250; J3490; J7050

== ENCOUNTER 2024-07-02 13:05 | Outpatient (CLI) | payer MEDICARE, OTHER, SELFPAY ==
--- NOTE | 2024-07-02 13:08 | USCV_ITS ---
Leticia Maynard Age: 64 Gender: F : 1960 Exam Date: 07/02/2024 14:28 Ordering Phys: Samuel Granados MD ([email or web address]) Technologist: [place] [facility] [place]: cad BP: 125 / 70 HR: 69 Rhythm: Sinus Technical Quality: Adequate MEASUREMENTS (Male / Female) Normal Values 2D ECHO LVOT Diameter 1.9 cm LV Ejection Fraction MOD 4C 52.5 % LV Ejection Fraction MOD 2C 56.5 % LV Ejection Fraction 2C AL 57.3 % LA Diameter 4.0 cm RA Systolic Volume 4C AL 61.4 ml RA Systolic Volume 4C MOD 58.5 ml LA Sys Volume AL 52.9 cm cubed LA Sys Volume Index AL 23.2 cm cubed/m squared M-MODE LA Ao Ratio MM 1.4 AV Cusp Separation MM 2.2 cm DOPPLER AV Peak Velocity 108.0 cm/s LVOT Peak Velocity 77.0 cm/s AV Area Cont Eq vti 2.3 cm squared AV Area Cont Eq pk 2.0 cm squared MV Peak Velocity 265.3 cm/s MV Area PHT 4.0 cm squared Mitral E to A Ratio 1.1 TV Peak Velocity 138.0 cm/s TR Peak Velocity 143.0 cm/s TR Peak Gradient 8.2 mmHg TV Peak E Velocity 82.0 cm/s Right Atrial Pressure 3.0 mmHg Pulmonary Artery Systolic Pressu 11.2 mmHg PV Peak Velocity 91.0 cm/s FINDINGS Left Ventricle Normal left ventricular size and systolic function, EF 57%. No significant wall motion normalities. Echodensity in the LV apex most likely degenerated endocardial structure. Right Ventricle Normal right ventricular size and systolic function. Right Atrium The right atrium is normal in size. Left Atrium The left atrium is normal in size. Mitral Valve Trace mitral valve regurgitation. Aortic Valve Thickened aortic valve. Tricuspid Valve No gross abnormalities noted Pulmonic Valve No gross abnormalities noted Pericardium Normal pericardium without effusion. Aorta Plaque seen in the ascending aorta. IVC The inferior vena cava appears normal. CONCLUSIONS Normal left ventricular size and systolic function, EF 57%. No significant wall motion normalities. Echodensity in the LV apex most likely degenerated endocardial structure. Plaque seen in the ascending aorta. There is no pericardial effusion. There are no intracardiac masses. No similar previous studies are available for comparison Dr Samuel Granados MD FACC (Electronically Signed) Final Date: 04 July 2024 21:17 S
== END 2024-07-02 13:06 | disposition home or self-care (01) ==
LOC: RAD 13:06
PROVIDERS: PCP Nurse Practitioner Family; Visit Provider Internal Medicine Cardiovascular Disease
DX: R06.09 Other forms of dyspnea (principal); I35.2 Nonrheumatic aortic (valve) stenosis with insufficiency; R93.1 Abnormal findings on diagnostic imaging of heart and coronary circulation
CPT/HCPCS: 93306

== ENCOUNTER 2024-07-07 05:38 | Outpatient (CLI) | payer MEDICARE, OTHER, SELFPAY ==
[2024-07-07] VITALS (9 sets, daily range): BP systolic 119–153; BP diastolic 57–78; PULSE 58–87; RESP 15–20; TEMP 36.7–37.1; O2SAT 90–96; BMI 34.9
--- NOTE | 2024-07-07 06:00 | XACV_ITS ---
Exam Room: 2 Ht: 173 cm Wt: 104 kg BSA: 2.28 m2 Gender: Female : 1960 Any Known Allergies: Other Exam Priority: Routine Procedure(s): Procedure Description: Diagnostic procedure Procedure Description: Left Heart Catheterization Procedure Description: Coronary IVUS Procedure Description: Miscellaneous Procedure Description: Angio-Seal Procedure Description: Coronary Angiography Procedure Description: Pressure Wire Diagnostic Cath Status: Elective Diagnostic Findings * The left main was found to have moderate calcium at the ostium. Selective engagement was somewhat difficult. It appeared to have an ostial stenosis of around 50%. The stent in the left main was found to be otherwise patent. * The left anterior descending artery is a medium caliber vessel which was found to have minimal intimal irregularities in the mid and distal segment. No significant stenotic lesions were noted. The artery gives of multiple diagonal branches which also were found to have no significant stenotic lesions. * The left circumflex artery is a medium caliber nondominant vessel with no significant stenotic lesions. * The right coronary artery is a medium to large caliber dominant vessel which was found to have mild diffuse intimal irregularities in the mid and distal segment. No significant stenotic lesions. PCI Status: Elective Interventional Findings * Procedure detail: We engaged left main artery with XB 3.5 guide catheter. IV heparin was administered to maintain anticoagulation. IVUS catheter was advanced and did not show any significant in-stent restenosis however right at ostium, there was difficulty in assessment with IVUS. We then performed IFR at that was not ischemic with a value of 0.92. With confirmation with both IVUS and IFR, no significant stenosis was found and medical therapy was decided.. Conclusions 1. This is a 64-year-old white female with history of atherosclerotic heart diseas, status post left main stenting in 2020, present with complaints of chest pain, shortness of breath and weakness. She had a Myocardial perfusion imaging which revealed a elevated transient ischemic dilatation ratio 1.3. No significant perfusion abnormalities were noted. Because of the patient's ongoing symptoms and the history of left main stenting, in order to further evaluate her coronary status, a cardiac catheterization was recommended. Patient underwent left heart catheterization with left and right coronary angiogram today. The findings are as follows. 2. Moderate to heavy calcification and around the ostium of the left main. There appeared to be around 50% gnosis at the ostium. The stent in the left main was found to be patent. The left and descending artery, circumflex and the right coronary artery were found to have minimal intimal irregularities with no significant stenotic lesions. The ostium of the right coronary artery also was found to have minimal calcification. LVEDP was 90 mmHg. 3. I reviewed and discussed the cardiac catheterization data with Dr. David. It does not be appropriate to consider an IFR of the left main ostial lesion. Dr. David took over further management of this patient at this point. 4. The IFR was performed and was found to be 0.92. Based on this, it was opted to review the patient medically. Recommendations * Aggressive medical therapy for coronary artery disease. Interventional RX Recommendation: medical therapy and/or counseling Diagnostic RX Recommendation: medical therapy and/or counseling Anticoagulation: Heparin LV EDP: 19 mmHg Left Ventriculography Findings: * LV gram was not performed because of the concern about the dye overload. The LVEDP was 19 mmHg. Pressures Phase:Rest AO : 143 / 60 ( 92 ) @ 8:38:00 AM 120 / 69 ( 93 ) @ 8:40:00 AM 115 / 66 ( 91 ) @ 8:49:00 AM 158 / 64 ( 102 ) @ 9:05:00 AM 157 / 65 ( 102 ) @ 9:05:00 AM LV : 162 / -5 / 19 @ 9:05:00 AM 157 / -6 / 22 @ 9:05:00 AM Valves Phase:DefaultPhase AV : 1.0 @ 8:46:22 AM 1.0 @ 8:46:22 AM AV Mean Gradient: 0.0 @ 8:46:22 AM Clinical Evaluation EBL: 5mL-10mL Procedural Details Pre-Procedure Time Out. Identified patient by full name and date of as verbalized by the patient/guarantor. Does the consent match the physician's order: Yes. Accurate & Complete Informed Consent: Yes. Inpatient/Outpatient History & Physical on Chart: Yes. If H&P is completed, is and addenduem needed: No; If yes, is the addendum complete: N/A. Visualize and Verify Site with Patient/Guarantor: N/A. Relevant Radiology Images available: Yes. Pre-op teaching completed and patient verbalized understanding. The risks, benefits, and alternatives of sedation and/or procedure were discussed by physician. The patient agrees to continue. Procedure started. [facility] Clinical Fraility Score: 4: Vulnerable. 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 Chest Pain Symptom Assessment: Atypical Angina. Correct patient, site and procedure confirmed by cath team. Current diagnosis: Chest Pain. PERRLA. Strong, equal hand supply controller bilaterally. Lungs clear x 5 lobes. IV Site on Arrival: 20 gauge in the right anticubital. IV Fluids: 0.9% NaCl at KVO. 0 mL infused prior to brush clearing laborer. Pre Procedural Pulses: bilateral dorsalis pedis was Doppled. Pre Procedural Pulses: bilateral posterior tibial was Doppled. Pre Procedural Pulses: bilateral radial was 2+. Oxygen started at 2liters/min via nasal canula. bilateral groins was prepped with chloroprep then draped in the usual sterile fashion. Baseline sample Acquired. HR: 64 BPM. Physician arrived. Physician scrubbed in. Immediate Pre-Procedure Time Out. Correct Patient: Yes; Correct Procedure: Yes; Correct Site: Yes; Correct Patient Position: Yes; Correct Supplies: Yes; Dried Flammable Prep: Yes; Blood Products Available: N/A;. Lidocaine 1% infiltrated to the right groin. Arterial access obtained with micropuncture set. A 5 german JL4 catheter in over wire. Multiple views taken of left coronary artery. Catheter removed over the standard wire. A 5 german AL2 catheter in over wire. Catheter removed over the standard wire. A 5 german JL3.5 catheter in over wire. Multiple views taken of left coronary artery. Catheter removed over the standard wire. A 5 german JL4 catheter in over wire. Dr. David called to review films. Catheter removed over the standard wire. A 5 german JR4 catheter in over wire. Dr. David arrived. Multiple views taken of right coronary artery. EDP Sample taken: LV 162/-6,19; HR: 72 BPM; SpO2: 98%. Pullback taken: LV 157/-7,22; AO 158/64(102); Mean: 0mmHg, Peak to Peak: 1mmHg, SEP: 16sec/min; HR: 65 BPM; SpO2: 98%. Catheter removed over the standard wire. Physician scrubbed out. Side port of sheath attached to heparnized saline flush at KVO to maintain patency. Dr. David scrubbed in to perform intervention. 6 german XB 3.5 guide catheter was inserted over the wire. Runthrough guidewire was advanced through the guide catheter to lesion in the LMCA. Wire out. Guide catheter out. 6 german XB 3 guide catheter was inserted over the wire. Runthrough guidewire was advanced through the guide catheter to lesion in the LMCA. IVUS catheter inserted and advanced to the LM. Measurements obtained. IVUS catheter out OTW. IFR wire inserted. Runthrough wire out. IFR results: 0.92. Wire out. ACT drawn. Results 262 seconds. Therapeutic limits - pre-heparin administration 90-150 seconds and monitoring heparin during a vascular procedure >250 seconds. Guide catheter out. A Right femoral angiogram was performed to determine safe placement of closure device. A Angio-Seal VIP ([facility]. Piotr) was successful obtaining hemostatsis at the Right Femoral artery insertion site. Post Procedure: Pulses reassessed and unchanged. PERRLA. Strong, equal hand supply controller bilaterally. No VTE prophylaxis required. Medication's Wasted: Lidocaine 1% = 10 mL. Medication's Wasted: Heparin = 4000 units. Total IV fluids: 50 mL. Complications: None. Estimated blood loss: 5mL-10mL. Responsiveness - Normal response to verbal stimuli; alert and oriented, PERRLA. Airway - Unaffected, no intervention required; spontaneous ventilation. Circulation: W/N/L, pulses unchanged. Nausea/Vomiting: No. Procedure completed. Patient transferred by bed to CPRU. Vital chart was stopped. Access Site Site: Right Femoral artery Sheath Size: 6 Fr Hemostasis Method: Angio-Seal VIP ([facility]. Piotr) Hemostasis Success: Successful Procedure Medications Start: 7:23 AM Stop: 7:23 AM Medication: Versed Amount: 1 mg Route: I.V. Start: 7:23 AM Stop: 7:23 AM Medication: Fentanyl Amount: 50 mcg Route: I.V. Start: 7:26 AM Stop: 7:26 AM Medication: Versed 1 mg and Fentanyl 25 mcg Amount: 1 Route: I.V. Start: 7:32 AM Stop: 7:32 AM Medication: Versed Amount: 1 mg Route: I.V. Start: 7:37 AM Stop: 7:37 AM Medication: Versed Amount: 1 mg Route: I.V. Start: 7:43 AM Stop: 7:43 AM Medication: Heparin Amount: 1500 units Route: I.V. Start: 7:44 AM Stop: 7:44 AM Medication: Versed Amount: 1 mg Route: I.V. Start: 8:02 AM Stop: 8:02 AM Medication: Fentanyl Amount: 25 mcg Route: I.V. Start: 8:21 AM Stop: 8:21 AM Medication: Heparin Amount: 6000 units Route: I.V. Start: 8:29 AM Stop: 8:29 AM Medication: Heparin Amount: 1000 units Route: I.V. I, the attending physician, have reviewed and verified all procedure medications. Yes, all medications given per verbal order History/Risk Factors Hypertension: Yes Dyslipidemia: No Peripheral Arterial Disease (PAD): No Myocardial Infarction (MT): No Obesity: Yes Renal Disease: No Tobacco Use: Current/Recent(w/in 1 year) Prior Interventions PCI: Yes CABG: No Valve Surgery: No Report Signatures Interventional Workflow Finalized by Eleazar David MD on 07/10/2024 06:49 PM Diagnostic Workflow Finalized by Dr Samuel Granados MD [facility] on 07/07/2024 09:39 AM
[2024-07-07] MEDS: aspirin 325 mg Tablet PO (06:23)
[2024-07-07] MEDS: diphenhydrAMINE 50 mg Capsule PO (06:23)
[2024-07-07 06:29] LABS: Basophils % 0.4 %; Eosinophils # 0.1 10^3/uL (0.0-0.8); Eosinophils % 1.5 %; Hematocrit 39.8 % (36-47); Lymphocytes # 2.6 10^3/uL (0.8-4.8); Mean Corpuscular HGB Conc 32.4 g/dL (30-55); Mean Corpuscular Hemoglobin 28.7 pg (27-33); Mean Corpuscular Volume 88.6 fl (85-98); Mean Platelet Volume 11.2 fL (7.4-10.4); Monocytes # 0.6 10^3/uL (0.2-0.9); Monocytes % 7.4 %; Neutrophils # 4.73 10^3/uL (1.8-7.7); Neutrophils % 58.5 %; Nucleated Red Blood Cells % 0 %; Platelet Count 185 10^3/cmm (157-399); Red Blood Count 4.49 10^6/uL (3.85-5.65); Red Cell Distribution Width 13.2 % (12.1-15.1); White Blood Count 8.09 10^3/uL (3.29-11.43)
[2024-07-07 06:45] LABS: Anion Gap 13.4 (5-19); Blood Urea Nitrogen 9 mg/dL (8-23); Calcium 8.7 mg/dL (8.5-10.5); Carbon Dioxide 33 mmol/L (22-29); Chloride 98 mmol/L (98-107); Glomerular Filtration Rate 71.8 mL/min (90-130); Glucose 99 mg/dL (65-115); Osmolality Calculated 291 mOsm/kg (285-295); Potassium 3.4 mmol/L (3.5-5.1); Sodium 141 mmol/L (136-145)
--- NOTE | 2024-07-07 07:17 | P.HP_ITS ---
Providers/Chief Complaint 2 Admitting Physician: EMIR Granados MD Primary Care Provider: SHAILA Diane Chief Complaint: I25.118 History of Present Illness Leticia Maynard is a 64 year old female with a history of atherosclerotic heart disease, status post left main stenting, high blood pressure, dyslipidemia and severe COPD, presented with complaints of chest tightness/heaviness. She had a dobutamine/sestamibi sestamibi stress test. She was found to have elevated transient ischemic dilatation ratio 1.31. In view of her ongoing symptoms, in order to further evaluate her coronary status, a cardiac catheterization was recommended. According to the patient, her symptoms are similar to what she had before the left main stenting. She had the procedure done at the [facility] in [place] in 2020. She denies any fever or chills. No cough. She has a baseline shortness of breath. She was evaluated for surgery prior to the stenting. Because of her severe COPD, she was deemed to be a high risk for surgery. So the PCI was done. Review of Systems 2 Narrative: CONSTITUTIONAL: No fever or chills. EYES: No blurring of vision or other visual disturbances lately. ENT: No hoarseness of voice, auditory disturbances or sore throat. CARDIOVASCULAR: As mentioned above. RESPIRATORY: Severe COPD GASTROINTESTINAL: No hematemesis or melena. GENITOURINARY: No dysuria or hematuria. INTEGUMENTARY: No skin rashes or history of skin cancer. NEURO: No transient ischemic attacks or amaurosis. PSYCHIATRIC: No history of psychosis or major depression. HEMATOLOGIC: No bleeding disorders or significant anemia. ENDOCRINE: No history of polyuria or polydipsia. MUSCULOSKELETAL: No recent joint pain or swelling. ALLERGY/IMMUNOLOGY: As mentioned above. Medications/Allergies Home Medications Medication Instructions Recorded Confirmed Last Taken Type CPAP 05/19/23 07/06/24 Unknown History acetaminophen 500 mg tablet 500 mg PO Q6H PRN Pain 05/19/23 07/06/24 Unknown History (Tylenol Extra Strength) cyclobenzaprine 10 mg tablet 10 mg PO TID PRN Spasms 05/19/23 07/06/24 Unknown History multivitamin (Daily Multi-Vitamin 1 tab PO DAILY 05/19/23 07/07/24 07/06/24 History tablet) nitroglycerin 0.4 mg sublingual 0.4 mg sublingual Q5M PRN Chest 05/19/23 07/06/24 Unknown History tablet (Nitrostat) Pain oxygen-air delivery systems 05/19/23 07/06/24 Unknown History dyanaia venkataes 1 ea PO PRN 06/18/23 07/07/24 07/06/24 History ipratropium 0.5 mg-albuterol 3 mg 3 ml inhalation 6XD PRN Shortness 08/13/23 07/07/24 07/06/24 History (2.5 mg base)/3 mL nebulization Of Breath soln budesonide 0.5 mg/2 mL suspension 0.5 mg (2 mL) inhalation BID #120 11/06/23 07/07/24 07/06/24 Rx for nebulization mL formoterol fumarate 20 mcg/2 mL 2 ml inhalation BID #120 mL 11/06/23 07/07/24 07/06/24 Rx solution for nebulization (Perforomist) revefenacin 175 mcg/3 mL solution 175 mcg (3 mL) inhalation DAILY 11/06/23 07/07/24 07/06/24 Rx for nebulization (Yupelri) #90 mL clonazepam 1 mg tablet (Klonopin) 1 mg PO TID #270 tabs 01/27/24 07/07/24 07/06/24 Rx isosorbide mononitrate 60 mg 60 mg PO DAILY #90 tabs 03/01/24 07/07/24 07/06/24 Rx tablet,extended release 24 hr albuterol sulfate 90 mcg/actuation See Rx Instructions .Route 03/11/24 07/07/24 07/06/24 Rx aerosol inhaler .COMPLEX #6.7 grams clopidogrel 75 mg tablet See Rx Instructions .Route 03/15/24 07/06/24 07/07/24 04:20 Rx .COMPLEX #30 tabs furosemide 20 mg tablet See Rx Instructions .Route 03/15/24 07/06/24 Unknown Rx .COMPLEX #30 tabs metoprolol tartrate 25 mg tablet See Rx Instructions .Route 03/29/24 07/07/24 07/06/24 Rx .COMPLEX #90 tabs spironolactone 25 mg tablet See Rx Instructions .Route 03/29/24 07/07/24 07/06/24 Rx .COMPLEX #90 tabs fluticasone propionate 50 2 spray intranasal DAILY #16 grams 05/07/24 07/07/24 07/07/24 04:20 Rx mcg/actuation nasal spray,suspension (Flonase Allergy Relief) nystatin 100,000 unit/gram topical 1 applic topical DAILY #60 grams 05/17/24 07/07/24 07/06/24 Rx powder potassium chloride 20 mEq 20 meq PO .COMPLEX #150 tabs 05/17/24 07/07/24 07/06/24 Rx tablet,extended release fluoxetine 20 mg capsule See Rx Instructions .Route 06/16/24 07/07/24 07/06/24 Rx .COMPLEX #30 caps Allergies Allergy/AdvReac Type Severity Reaction Status Date / Time Penicillanic Sulfone BL Allergy ADR-Itching Verified 07/06/24 10:41 Beta-Lactam Penicillins Allergy rash Verified 07/06/24 10:41 onion AdvReac Severe ALGY-Hives Verified 07/06/24 10:41 PFSH Acute 2 PFSH: Medical History Primary osteoarthritis of left knee CHF (congestive heart failure) COPD (chronic obstructive pulmonary disease) Asthma Arthritis Sleep apnea Smoker Hypoxia BiPAP (biphasic positive airway pressure) dependence Cluster headaches Chronic low back pain Other chronic pain Acute bilateral low back pain Sciatica Pain in left hip Acute hip pain COPD (chronic obstructive pulmonary disease) Anxiety Aching headache Hypertension Insomnia Chronic joint pain Lentigo simplex Delivery with history of Encounter for long-term opiate analgesic use Pain management contract signed Opioid use Encounter for narcotic contract discussion Lumbago with sciatica, left side Surgical History Hx of section Hx of cholecystectomy Hx of appendectomy Hx of heart artery stent Hx of breast biopsy Hx of cholecystectomy History of appendectomy Hx of shoulder surgery Social History Smoking and tobacco/nicotine status: current every day tobacco/nicotine user cigarettes Packs smoked per day: 1 Years cigarettes smoked: 50 [ Other cigarette details: started at age 13] Alcohol intake: former Substance/Drug Use: current Caregiver/support person: Yes Lives independently: Yes Vitals/I&O/Wt Last Vital Signs Temp 98.7 F 07/07/24 06:09 Pulse 58 L 07/07/24 06:09 Resp 20 H 07/07/24 06:09 BP 153/67 07/07/24 06:09 Pulse Ox 96 07/07/24 06:09 O2 Del Method Nasal Cannula 07/07/24 06:09 O2 Flow Rate 3 07/07/24 06:09 Weight last 48 hrs Weight 230 lb Physical Exam 2 Narrative: GENERAL: The patient is alert and oriented times three. Not in any acute distress. HEENT: No significant pallor, icterus or lymphadenopathy.Oral cavity: There are no mucous membrane lesions. NECK: Trachea appears to be central. No masses noted. No JVD or thyromegaly appreciated. RESPIRATORY: Chest is symmetrical. No intercostals muscle retraction or any accessory muscle activation. There is no chest wall tenderness. Breath sounds are heard bilaterally. No rales or rhonchi heard. No evidence of any consolidation. The intensity of the breath sounds are diminished in the bases. BREASTS: Deferred. HEART: The heart sounds are normal. No S3 or S4. No significant murmurs. No pericardial rub ABDOMEN: No vessel pulsations or distention. No tenderness. No organomegaly appreciated. Bowel sounds are normally heard. : Deferred. RECTAL: Deferred. LYMPHATIC: No lymphadenopathy noted in the neck. EXTREMITIES: No edema or cyanosis. No clubbing. MUSCULOSKELETAL: No acute joint deformities or swelling SKIN: There are no significant rashes or ecchymosis NEUROPSYCHIATRIC: The patient is alert and oriented x3. Appears to be in a good mood. No tremors or rigidity noted. Data 07/07/24 06:15 07/07/24 06:15 Other Labs: Laboratory Last Values WBC 8.09 10^3/uL (3.29-11.43) 07/07/24 06:15 RBC 4.49 10^6/uL (3.85-5.65) 07/07/24 06:15 Hgb 12.90 g/dL (11.27-16.99) 07/07/24 06:15 Hct 39.8 % (36-47) 07/07/24 06:15 MCV 88.6 fl (85-98) 07/07/24 06:15 MCH 28.7 pg (27-33) 07/07/24 06:15 MCHC 32.4 g/dL (30-55) 07/07/24 06:15 RDW 13.2 % (12.1-15.1) 07/07/24 06:15 Plt Count 185 10^3/cmm (157-399) 07/07/24 06:15 MPV 11.2 fL (7.4-10.4) H 07/07/24 06:15 Neut % (Auto) 58.5 % 07/07/24 06:15 Lymph % (Auto) 32.0 % 07/07/24 06:15 [place] % (Auto) 7.4 % 07/07/24 06:15 Eos % (Auto) 1.5 % 07/07/24 06:15 Baso % (Auto) 0.4 % 07/07/24 06:15 Neut # (Auto) 4.73 10^3/uL (1.8-7.7) 07/07/24 06:15 Lymph # (Auto) 2.6 10^3/uL (0.8-4.8) 07/07/24 06:15 [place] # (Auto) 0.6 10^3/uL (0.2-0.9) 07/07/24 06:15 Eos # (Auto) 0.1 10^3/uL (0.0-0.8) 07/07/24 06:15 Baso # (Auto) 0.0 10^3/uL (0.0-0.1) 07/07/24 06:15 Nucleated RBC % (auto) 0 % 07/07/24 06:15 Nucleated RBCs # 0.0 /100WBC 07/07/24 06:15 Sodium 141 mmol/L (136-145) 07/07/24 06:15 Potassium 3.4 mmol/L (3.5-5.1) L 07/07/24 06:15 Chloride 98 mmol/L (98-107) 07/07/24 06:15 Carbon Dioxide 33 mmol/L (22-29) H 07/07/24 06:15 Anion Gap 13.4 (5-19) 07/07/24 06:15 BUN 9 mg/dL (8-23) 07/07/24 06:15 Creatinine 0.8 mg/dL (0.5-0.9) 07/07/24 06:15 GFR Calculation 71.8 mL/min (90-130) L 07/07/24 06:15 Glucose 99 mg/dL (65-115) 07/07/24 06:15 Calculated Osmolality 291 mOsm/kg (285-295) 07/07/24 06:15 Calcium 8.7 mg/dL (8.5-10.5) 07/07/24 06:15 A&P Assessment and plan (1) Abnormal nuclear stress test: The elevated transient ischemic dilatation ratio in view of the patient's ongoing symptoms and the history of left main stenting, may suggest restenosis of the left main restenosis. This needs to be further evaluated. For further evaluation of her coronary status, a cardiac catheterization was recommended. The risk of bleeding, hematoma, vascular injury, myocardial infarction, myocardial perforation, malignant cardiac arrhythmias ,CVA, renal failure and other concomitant complications were explained in detail. Patient understood this well and consented to proceed. If the patient requires surgery or surgical backup, at that point we may have to transfer to another facility with surgical backup. This was discussed in detail which the patient and the family understood well (2) Atherosclerotic heart disease of [place]in[place] coronary artery with other forms of angina pectoris: Patient had the PCI of the left main by Dr. Molina at the [facility] in [place] in 2020 (3) Hypertension: Fairly under control. Continue on the current medications. Qualifiers: Hypertension type: primary hypertension Qualified Code(s): I10 - Essential (primary) hypertension (4) CHF (congestive heart failure): Currently compensated. Will continue on the current management. Qualifiers: Heart failure type: unspecified Heart failure chronicity: unspecified Qualified Code(s): I50.9 - Heart failure, unspecified (5) Dyslipidemia: Continue on the current medications. (6) COPD (chronic obstructive pulmonary disease): Continue on the current management Qualifiers: COPD type: unspecified COPD Qualified Code(s): J44.9 - Chronic obstructive pulmonary disease, unspecified Plan Based on angiogram findings, further recommendations will be made. Attestations 2 Medical Necessity Statement*: Patient may require overnight stay. Coding Level of Care Code 36843 Diagnoses Abnormal nuclear stress test R94.39 Atherosclerotic heart disease of rin[place] coronary artery with other forms of angina pectoris I25.118 Primary hypertension I10 Hypertension type: primary hypertension Congestive heart failure, unspecified HF chronicity, unspecified heart failure type I50.9 Heart failure type: unspecified Heart failure chronicity: unspecified Dyslipidemia E78.5 Chronic obstructive pulmonary disease, unspecified COPD type J44.9 COPD type: unspecified COPD
--- NOTE | 2024-07-07 07:24 | W.PM.OPSUD ---
Surgery/Procedure H&P Update DATE OF PROCEDURE: July 07, 2024 DATE H&P PERFORMED: 07/07/24 H&P UPDATE INFORMATION: I have reviewed H&P completed within last 30 days, I have examined patient prior to procedure and No changes to prior documentation PREOP DIAGNOSIS: Atherosclerotic heart disease PRIMARY INDICATION FOR PROCEDURE: Abnormal stress test, previous PCI of the left main. PLANNED PROCEDURE: Operation Date: 07/07/24 07:00 Proposed Procedures p Cardiac Catheterization 58837, I25.118, R94.39, I25.10(Left) - Samuel Granados MD PATIENT REASSESSED PRIOR TO SEDATION, WITH NO CHANGE NOTED: Yes PHYSICAL EXAM: alert, oriented x 3, clear to auscultation bilaterally and regular rate & rhythm AIRWAY EVAL/ANESTHESIA PLAN: normal airway, see other exam findings, ASA III, Monitored Anesthesia, Local Anesthesia, Risks, benefits & alternatives of sedation and/or procedure discussed and Patient agrees to continue as planned
--- NOTE | 2024-07-07 09:11 | PC.NURSE ---
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
[2024-07-07] MEDS: FUROsemide 20 mg Tablet PO (09:53)
[2024-07-07] MEDS: potassium chloride ER 20 mEq Tablet PO (09:53)
[2024-07-07] MEDS: CLONazepam 1 mg Tablet PO ×2 (09:53→14:36)
--- NOTE | 2024-07-07 14:54 | PC.NURSE ---
Small area, the size of a nickel is noted on bandage.
--- NOTE | 2024-07-07 17:27 | PC.NURSE ---
Patient wants to take her metoprolol at home at bedtime, that is her normal time of taking this medication.
--- NOTE | 2024-07-07 18:05 | PC.NURSE ---
Patient left via a wheelchair and private car with her daughter. She is given all discharge papers and she states understanding.
== END 2024-07-07 18:04 | disposition home or self-care (01) ==
LOC: CCL 05:39 → CSU 09:11
PROVIDERS: Internal Medicine; PCP Nurse Practitioner Family; Visit Provider Internal Medicine Cardiovascular Disease
DX: I25.118 Atherosclerotic heart disease of native coronary artery with other forms of angina pectoris (principal); I11.0 Hypertensive heart disease with heart failure; I50.9 Heart failure, unspecified; E78.5 Hyperlipidemia, unspecified; J44.9 Chronic obstructive pulmonary disease, unspecified; Z95.5 Presence of coronary angioplasty implant and graft; F41.9 Anxiety disorder, unspecified; F17.210 Nicotine dependence, cigarettes, uncomplicated
CPT/HCPCS: 36415; 80048; 85025; 85347; 92978; 93458; 93571; 96374; 99152; 99153; C1753; C1760; C1769; C1887; C1894; G0269; J1644; J2250; J3010; J3490; J7030; Q0163; Q9967

== ENCOUNTER → 2024-07-26 13:13 | Outpatient (BNVA) | payer MEDICARE, OTHER, SELFPAY | PROVIDERS: PCP Nurse Practitioner Family; Visit Provider Psychiatry & Neurology Neurology | DX: G44.001 Cluster headache syndrome, unspecified, intractable (principal); I25.118 Atherosclerotic heart disease of native coronary artery with other forms of angina pectoris; I50.9 Heart failure, unspecified; J44.9 Chronic obstructive pulmonary disease, unspecified; E87.6 Hypokalemia; F17.200 Nicotine dependence, unspecified, uncomplicated | CPT/HCPCS: 99212; 99213 ==

== ENCOUNTER → 2024-07-28 12:56 | Outpatient (BNVA) | payer MEDICARE, OTHER, SELFPAY | PROVIDERS: PCP Nurse Practitioner Family; Visit Provider Nurse Practitioner | DX: M17.12 Unilateral primary osteoarthritis, left knee (principal); Z71.89 Other specified counseling | CPT/HCPCS: 20610; J7318 ==

== ENCOUNTER 2024-09-17 12:10 | Outpatient (CLI) | payer MEDICARE, OTHER, SELFPAY ==
--- NOTE | 2024-09-17 12:15 | CT_ITS ---
WS: [id number] LDCT LUNG CANCER SCREENING HISTORY: Cancer screen TECHNIQUE: Axial imaging performed from the apices to 1 cm below the costophrenic angles. Coronal and sagittal reformats are submitted with axial MIP series. All CT scans at [facility] use at least one of these dose optimization techniques: automated exposure control; mA and/or kV adjustment per patient size (includes targeted exams where dose is matched to clinical indication); or iterativ e reconstruction. DLP: 118.70 mGy.cm DIvol: Mean CTDIvol: 3.00 (mGy) COMPARISON: 09/17/2023 Diagnostic quality: Satisfactory Lungs: No pulmonary mass or nodule. No endobronchial lesions. Heart: Normal size heart with no pericardial effusion.. Other findings: Mild atherosclerosis aorta. Small hiatal hernia. No adrenal mass. CT/CT lung screening 55787 IMPRESSION: LUNG-RADS: 1-Negative FOLLOW UP: 12 Month: Continue annual screening with LDCT OTHER FINDINGS (S MODIFIER): None.
== END 2024-09-17 12:11 | disposition home or self-care (01) ==
LOC: RAD 12:11
PROVIDERS: PCP Nurse Practitioner Family; Visit Provider Internal Medicine Pulmonary Disease
DX: Z12.2 Encounter for screening for malignant neoplasm of respiratory organs (principal); F17.210 Nicotine dependence, cigarettes, uncomplicated; K44.9 Diaphragmatic hernia without obstruction or gangrene
CPT/HCPCS: 71271

== ENCOUNTER → 2024-11-05 09:41 | Outpatient (BNVA) | payer MEDICARE, OTHER, SELFPAY | PROVIDERS: PCP Nurse Practitioner Family; Visit Provider Nurse Practitioner | DX: M17.12 Unilateral primary osteoarthritis, left knee (principal); G89.29 Other chronic pain; Z71.89 Other specified counseling | CPT/HCPCS: 20610; J1100; J2795; J3301 ==

== ENCOUNTER → 2024-11-10 09:45 | Outpatient (BNVA) | payer MEDICARE, OTHER, SELFPAY | PROVIDERS: PCP Nurse Practitioner Family; Visit Provider Nurse Practitioner | DX: M25.561 Pain in right knee (principal) | CPT/HCPCS: 20610; 73560; 73565; J1100; J2795; J3301 ==

== ENCOUNTER 2024-12-31 13:11 | Outpatient (CLI) | payer MEDICARE, OTHER, SELFPAY ==
--- NOTE | 2024-12-31 08:30 | MR_ITS ---
WS: [id number] MRI RIGHT KNEE NONCONTRAST TECHNIQUE: Axial PD, coronal PD fat sat, coronal PD, sagittal PD, and sagittal PD fat-sat images obtained. CLINICAL INFORMATION: M17.11 - Unilateral primary osteoarthritis, right knee COMPARISON: None. FINDINGS: Moderate tricompartment arthritis. Distal quadriceps and patellar tendons are intact. ACL and PCL appear intact. Moderate chondromalacia patella. No subchondral edema. Medial and lateral patellar retinacula appear intact. Small suprapatellar effusion. Soft tissue edema about the joint line. Mild chronic thinning of the medial and lateral meniscus. No acute appearing meniscal tears. Medial and lateral collateral ligaments appear intact. Normal popliteus. MR/MR knee RT wo con* [id number] IMPRESSION: 1. Moderate tricompartment arthritis. 2. ACL and PCL appear intact. 3. Moderate chondromalacia patella. 4. Small suprapatellar effusion. 5. No acute appearing meniscal tears. 6. Moderate narrowing of the medial lateral joint compartments with grade 2-3 chondromalacia. Outbridge grading: grade III: partial-thickness cartilage loss with focal ulcer ation
== END 2024-12-31 13:12 | disposition home or self-care (01) ==
PROVIDERS: PCP Nurse Practitioner Family; Visit Provider Nurse Practitioner
DX: M17.11 Unilateral primary osteoarthritis, right knee (principal); M22.41 Chondromalacia patellae, right knee; R93.6 Abnormal findings on diagnostic imaging of limbs
CPT/HCPCS: 73721

== ENCOUNTER → 2025-01-04 11:56 | Outpatient (BNVA) | payer MEDICARE, OTHER, SELFPAY | PROVIDERS: PCP Nurse Practitioner Family; Visit Provider Internal Medicine Cardiovascular Disease | DX: R07.9 Chest pain, unspecified (principal); J44.9 Chronic obstructive pulmonary disease, unspecified; F17.210 Nicotine dependence, cigarettes, uncomplicated; Z99.81 Dependence on supplemental oxygen | CPT/HCPCS: 93005; 99212; 99214 ==

== ENCOUNTER → 2025-01-10 11:44 | Outpatient (BNVA) | payer MEDICARE, OTHER, SELFPAY | PROVIDERS: PCP Nurse Practitioner Family; Visit Provider Nurse Practitioner Family | DX: J44.9 Chronic obstructive pulmonary disease, unspecified (principal); I10 Essential (primary) hypertension; I50.9 Heart failure, unspecified; R53.83 Other fatigue; L03.90 Cellulitis, unspecified; R07.81 Pleurodynia; R60.9 Edema, unspecified | CPT/HCPCS: 80053; 80061; 83880; 85025; 87070 ==

== ENCOUNTER → 2025-01-11 08:49 | Outpatient (BNVA) | payer MEDICARE, OTHER, SELFPAY | PROVIDERS: PCP Nurse Practitioner Family | DX: I96 Gangrene, not elsewhere classified (principal); L97.822 Non-pressure chronic ulcer of other part of left lower leg with fat layer exposed | CPT/HCPCS: 11042; A6212 ==

== ENCOUNTER → 2025-01-18 12:59 | Outpatient (BNVA) | payer MEDICARE, OTHER, SELFPAY | PROVIDERS: PCP Nurse Practitioner Family; Visit Provider Thoracic Surgery (Cardiothoracic Vascular Surgery) | DX: I96 Gangrene, not elsewhere classified (principal); L97.822 Non-pressure chronic ulcer of other part of left lower leg with fat layer exposed | CPT/HCPCS: 11042 ==

== ENCOUNTER → 2025-01-25 13:07 | Outpatient (BNVA) | payer MEDICARE, OTHER, SELFPAY | PROVIDERS: PCP Nurse Practitioner Family; Visit Provider Thoracic Surgery (Cardiothoracic Vascular Surgery) | DX: I96 Gangrene, not elsewhere classified (principal); L97.822 Non-pressure chronic ulcer of other part of left lower leg with fat layer exposed | CPT/HCPCS: 11042; A6212; A6248 ==

== ENCOUNTER → 2025-02-01 14:10 | Outpatient (BNVA) | payer MEDICARE, OTHER, SELFPAY | PROVIDERS: PCP Nurse Practitioner Family; Visit Provider Thoracic Surgery (Cardiothoracic Vascular Surgery) | DX: I96 Gangrene, not elsewhere classified (principal); L97.821 Non-pressure chronic ulcer of other part of left lower leg limited to breakdown of skin | CPT/HCPCS: 97597; A6210 ==

== ENCOUNTER → 2025-02-04 09:41 | Outpatient (BNVA) | payer MEDICARE, OTHER, SELFPAY | PROVIDERS: PCP Nurse Practitioner Family; Visit Provider Nurse Practitioner | DX: M17.12 Unilateral primary osteoarthritis, left knee (principal); G89.29 Other chronic pain; Z71.89 Other specified counseling; M79.7 Fibromyalgia | CPT/HCPCS: 20610; 99214; J1100; J2795; J3301; J9999 ==

== ENCOUNTER → 2025-02-09 09:37 | Outpatient (BNVA) | payer MEDICARE, OTHER, SELFPAY | PROVIDERS: PCP Nurse Practitioner Family | DX: I96 Gangrene, not elsewhere classified (principal); L97.822 Non-pressure chronic ulcer of other part of left lower leg with fat layer exposed | CPT/HCPCS: 11042 ==

== ENCOUNTER → 2025-02-16 09:35 | Outpatient (BNVA) | payer MEDICARE, OTHER, SELFPAY | PROVIDERS: PCP Nurse Practitioner Family | DX: I96 Gangrene, not elsewhere classified (principal); L97.221 Non-pressure chronic ulcer of left calf limited to breakdown of skin | CPT/HCPCS: 97597; A6210; A6212 ==

== ENCOUNTER 2025-03-25 08:35 | Outpatient (CLI) | payer MEDICARE, OTHER, SELFPAY ==
--- NOTE | 2025-03-25 09:15 | USCV_ITS ---
Leticia Maynard Age: 64 Gender: F : 1960 Exam Date: 03/25/2025 08:58 Ordering Phys: Fadia Li Technologist: MOHINDER [place] [facility] [place]: HF BP: 120 / 80 HR: 77 Rhythm: Sinus Technical Quality: Adequate MEASUREMENTS (Male / Female) Normal Values 2D ECHO LV Diastolic Diameter PLAX 5.4 cm 4.2 - 5.9 / 3.9 - 5.3 cm IVS Diastolic Thickness 1.1 cm 0.6 - 1.0 / 0.6 - 0.9 cm IVS Systolic Thickness 1.8 cm LVPW Diastolic Thickness 1.2 cm 0.6 - 1.0 / 0.6 - 0.9 cm LVPW Systolic Thickness 1.4 cm LVOT Diameter 2.0 cm LV Ejection Fraction 2D Teich 53.8 % LV Ejection Fraction MOD 4C 51.5 % LV Ejection Fraction MOD 2C 51.5 % LV Ejection Fraction 2C AL 52.7 % LA Diameter 3.3 cm RA Systolic Volume 4C AL 41.0 ml RA Systolic Volume 4C MOD 40.4 ml LA Sys Volume AL 36.7 cm cubed LA Sys Volume Index AL 15.0 cm cubed/m squared Aorta at Sinotubular Diameter 2.1 cm IVC Diameter 1.5 cm M-MODE LA Ao Ratio MM 1.7 AV Cusp Separation MM 1.6 cm DOPPLER AV Peak Velocity 98.0 cm/s LVOT Peak Velocity 92.0 cm/s AV Area Cont Eq vti 3.3 cm squared AV Area Cont Eq pk 2.9 cm squared MV Peak Velocity 104.0 cm/s MV Area PHT 4.0 cm squared Mitral E to A Ratio 1.3 TV Peak E Velocity 69.0 cm/s PV Peak Velocity 85.0 cm/s FINDINGS Left Ventricle Left renal is normal in size. LV systolic function is normal with EF of 55-60%. No regional wall motion abnormalities are seen. Right Ventricle Normal in size and function Right Atrium Normal in size Left Atrium Normal in size Mitral Valve Structurally normal mitral valve. Mild mitral regurgitation Aortic Valve Structurally normal aortic valve. No significant stenosis or regurgitation. Tricuspid Valve Insufficient TR jet to calculate RVSP Pulmonic Valve Not well visualized Pericardium Normal Aorta Normal in size IVC Appears to be normal CONCLUSIONS LV systolic function is normal with EF of 55-60%. Mild mitral regurgitation. Eleazar David MD (Electronically Signed) Final Date: 08 April 2025 13:10 S
== END 2025-03-25 08:36 | disposition home or self-care (01) ==
PROVIDERS: PCP Nurse Practitioner Family; Visit Provider Nurse Practitioner Family
DX: I50.9 Heart failure, unspecified (principal); I34.0 Nonrheumatic mitral (valve) insufficiency
CPT/HCPCS: 93306

== ENCOUNTER → 2025-05-16 08:37 | Outpatient (BNVA) | payer MEDICARE, OTHER, SELFPAY | PROVIDERS: PCP Nurse Practitioner Family; Visit Provider Nurse Practitioner | DX: M17.11 Unilateral primary osteoarthritis, right knee (principal); M17.12 Unilateral primary osteoarthritis, left knee; Z71.89 Other specified counseling | CPT/HCPCS: 20610; J1100; J2795; J3301; J9999 ==

== ENCOUNTER 2025-05-31 08:37 | Outpatient (CLI) | payer MEDICARE, OTHER, SELFPAY ==
[2025-05-31 09:10] VITALS: PULSE 87; RESP 18; O2SAT 94
== END 2025-05-31 08:38 | disposition home or self-care (01) ==
LOC: RT 08:39
PROVIDERS: PCP Nurse Practitioner Family; Visit Provider Nurse Practitioner Family
DX: J96.11 Chronic respiratory failure with hypoxia (principal); Z99.81 Dependence on supplemental oxygen; J44.9 Chronic obstructive pulmonary disease, unspecified; J98.8 Other specified respiratory disorders; R94.2 Abnormal results of pulmonary function studies
CPT/HCPCS: 94060; 94729

== ENCOUNTER → 2025-06-13 13:09 | Outpatient (BNVA) | payer MEDICARE, OTHER, SELFPAY | PROVIDERS: PCP Nurse Practitioner Family; Visit Provider Internal Medicine | DX: J44.89 Other specified chronic obstructive pulmonary disease (principal); J96.11 Chronic respiratory failure with hypoxia; Z99.81 Dependence on supplemental oxygen; Z99.89 Dependence on other enabling machines and devices; Z12.2 Encounter for screening for malignant neoplasm of respiratory organs; Z87.891 Personal history of nicotine dependence; J44.9 Chronic obstructive pulmonary disease, unspecified | CPT/HCPCS: 99214 ==

== ENCOUNTER → 2025-06-20 10:19 | Outpatient (BNVA) | payer MEDICARE, OTHER, SELFPAY | PROVIDERS: PCP Nurse Practitioner Family; Visit Provider Nurse Practitioner Family | DX: J44.9 Chronic obstructive pulmonary disease, unspecified (principal); R06.00 Dyspnea, unspecified; I10 Essential (primary) hypertension | CPT/HCPCS: 80053; 80061; 84443; 85025 ==

== ENCOUNTER 2025-06-23 13:40 | Outpatient (CLI) | payer MEDICARE, OTHER, SELFPAY ==
--- NOTE | 2025-06-23 14:00 | XR_ITS ---
WS: [id number] Exam: XR chest 2V* [id number] Date/Time of Exam: 06/23/2025 2:08 PM Reason For Exam: J44.9 - Chronic obstructive pulmonary disease, unspecified Compared to outside radiograph 07/29/2022. The lungs are fully expanded and clear. Normal cardiomediastinal silhouette. No pleural effusion. Bony structures are intact. XR/XR chest 2V* [id number] IMPRESSION: 1. No acute cardiopulmonary finding.
--- NOTE | 2025-06-23 14:15 | XR_ITS ---
WS: [email or web address] Exam: XR ribs RT 2V* [id number] Date/Time of Exam: 06/23/2025 2:15 PM Reason For Exam: R07.81 - Pleurodynia No acute RIGHT rib fracture. The RIGHT lung is fully inflated and clear. No pulmonary or pleural reactive changes. XR/XR ribs RT 2V* [id number] IMPRESSION: 1. No acute right rib fracture.
== END 2025-06-23 13:41 | disposition home or self-care (01) ==
PROVIDERS: Absent Provider Internal Medicine; PCP Nurse Practitioner Family; Referring Provider Internal Medicine; Visit Provider Nurse Practitioner Family
DX: J44.9 Chronic obstructive pulmonary disease, unspecified (principal); R06.00 Dyspnea, unspecified; R07.81 Pleurodynia
CPT/HCPCS: 71046; 71100

== ENCOUNTER → 2025-08-16 11:02 | Outpatient (BNVA) | payer MEDICARE, OTHER, SELFPAY | PROVIDERS: PCP Nurse Practitioner Family; Visit Provider Nurse Practitioner Family | DX: I10 Essential (primary) hypertension (principal); I50.9 Heart failure, unspecified | CPT/HCPCS: 80053; 80061; 83880; 85025 ==

== ENCOUNTER → 2025-08-19 08:42 | Outpatient (BNVA) | payer MEDICARE, OTHER, SELFPAY | PROVIDERS: PCP Nurse Practitioner Family; Visit Provider Nurse Practitioner Family | DX: I25.10 Atherosclerotic heart disease of native coronary artery without angina pectoris (principal); I11.0 Hypertensive heart disease with heart failure; I50.30 Unspecified diastolic (congestive) heart failure; E87.6 Hypokalemia; J44.9 Chronic obstructive pulmonary disease, unspecified; I87.2 Venous insufficiency (chronic) (peripheral); M75.00 Adhesive capsulitis of unspecified shoulder; M17.9 Osteoarthritis of knee, unspecified; Z87.891 Personal history of nicotine dependence; I50.9 Heart failure, unspecified; I10 Essential (primary) hypertension | CPT/HCPCS: 99214 ==

== ENCOUNTER 2025-09-20 08:49 | Outpatient (CLI) | payer MEDICARE, OTHER, SELFPAY ==
--- NOTE | 2025-09-20 09:11 | USCV_ITS ---
HermanPhucLeticia Age: 65 Gender: F : 1960 Exam Date: 09/20/2025 09:27 Ordering Phys: Mignon Gross NP Technologist: Exam Location: [facility] [place] Indication: cp sob BP: / HR: 87 Rhythm: Sinus Technical Quality: Suboptimal MEASUREMENTS (Male / Female) Normal Values 2D ECHO LV Diastolic Diameter PLAX 4.2 cm 4.2 - 5.9 / 3.9 - 5.3 cm IVS Diastolic Thickness 1.3 cm 0.6 - 1.0 / 0.6 - 0.9 cm IVS Systolic Thickness 2.0 cm LVPW Diastolic Thickness 1.1 cm 0.6 - 1.0 / 0.6 - 0.9 cm LVPW Systolic Thickness 1.7 cm LVOT Diameter 2.0 cm LV Ejection Fraction 2D Teich 55.3 % LV Ejection Fraction MOD 4C 67.3 % LV Ejection Fraction MOD 2C 53.7 % LV Ejection Fraction 2C AL 53.3 % LA Diameter 3.0 cm RA Systolic Volume 4C AL 64.2 ml RA Systolic Volume 4C MOD 62.4 ml Aorta at Sinotubular Diameter 2.1 cm IVC Diameter 1.7 cm M-MODE LA Ao Ratio MM 1.2 AV Cusp Separation MM 2.1 cm DOPPLER AV Peak Velocity 116.0 cm/s LVOT Peak Velocity 95.0 cm/s AV Area Cont Eq vti 4.8 cm squared AV Area Cont Eq pk 2.7 cm squared MV Area PHT 5.8 cm squared Mitral E to A Ratio 1.5 TV Peak Velocity 193.7 cm/s TR Peak Velocity 219.0 cm/s TR Peak Gradient 19.2 mmHg TV Peak E Velocity 113.0 cm/s PV Peak Velocity 111.0 cm/s FINDINGS Left Ventricle Normal left ventricular size, systolic function and wall thickness, with no regional wall motion abnormalities. Left ventricular ejection fraction is estimated at 60 %. Grade II/IV diastolic dysfunction, moderately elevated filling pressures. Right Ventricle Normal right ventricular size and systolic function. Right Atrium Normal right atrial size. Left Atrium Normal left atrial size. IA Septum Normal appearance of the interatrial septum. Mitral Valve Mildly thickened mitral valve. No mitral valve stenosis. Trace mitral valve regurgitation. Aortic Valve Mild aortic valve calcification. No aortic valve stenosis. Trace aortic valve regurgitation. Tricuspid Valve Normal tricuspid valve structure. No tricuspid valve stenosis or regurgitation. Normal pulmonary pressure. Pulmonic Valve Trace pulmonary valve regurgitation. Pericardium No pericardial effusion. Aorta Normal diameter of the aortic root and ascending thoracic aorta. IVC Normal IVC diameter. CONCLUSIONS Normal left ventricular size, systolic function and wall thickness, with no regional wall motion abnormalities. Left ventricular ejection fraction is estimated at 60 %. Grade II/IV diastolic dysfunction, moderately elevated filling pressures. No significant valvular abnormalities. There is no pericardial effusion. Right atrial pressure is around 5 mm of mercury. Sanaz Hickman MD (Electronically Signed) Final Date: 01 October 2025 17:02 S
--- NOTE | 2025-09-20 11:15 | CT_ITS ---
WS: [id number] LDCT LUNG CANCER SCREENING HISTORY: F17.210 - Nicotine dependence, cigarettes, uncomplicated TECHNIQUE: Axial imaging performed from the apices to 1 cm below the costophrenic angles. Coronal and sagittal reformats are submitted with axial MIP series. All CT scans at [facility] use at least one of these dose optimization techniques: automated exposure control; mA and/or kV adjustment per patient size (includes targeted exams where dose is matched to clinical indication); or iterative reconstruction. DLP: 166.32 mGy.cm DIvol: Mean CTDIvol: 4.30 (mGy) COMPARISON: 09/17/2024 Diagnostic quality: Satisfactory Lungs: Marked hyperinflation of the lungs. Large area of groundglass attenuation with solid opacifications in the RIGHT lower lobe abutting the pleura. New since the prior study. Multiple areas of solid opacifications with the largest measuring 1.8 cm. No additional mass or nodule. Mild motion artifact. Heart: Normal size heart with no pericardial effusion.. Other findings: Moderate atherosclerosis aorta. No aneurysm. No mediastinal or hilar adenopathy. No adrenal mass. Mild increase in thoracic kyphosis. CT/CT lung screening [id number] IMPRESSION: LUNG-RADS: 4B-Suspicious FOLLOW UP: 1 Month LDCT OTHER FINDINGS (S MODIFIER): None. Groundglass opacification with consolidations in the RIGHT lower lobe. Favor th is is probably pneumonia with pneumonitis. Recommend follow-up chest CT with IV contrast in 1 month after treatment for pneumonia.
== END 2025-09-20 08:50 | disposition home or self-care (01) ==
LOC: RAD 08:50
PROVIDERS: PCP Nurse Practitioner Family; Visit Provider Nurse Practitioner Family
DX: Z12.2 Encounter for screening for malignant neoplasm of respiratory organs (principal); F17.210 Nicotine dependence, cigarettes, uncomplicated; R06.02 Shortness of breath; R91.8 Other nonspecific abnormal finding of lung field; I70.0 Atherosclerosis of aorta; M40.204 Unspecified kyphosis, thoracic region; R93.1 Abnormal findings on diagnostic imaging of heart and coronary circulation; I35.8 Other nonrheumatic aortic valve disorders
CPT/HCPCS: 71271; 93306